=== PATIENT | female | born 1935 | race Caucasian/White ===

== ENCOUNTER → 2016-12-26 | Outpatient (REF) | payer MEDICARE ==
[2016-12-26 12:10] LABS: ALBUMIN 3.7 GM/DL (3.2-5.2); ALBUMIN/GLOBULIN RATIO 1.28 (1.00-1.93); ALKALINE PHOSPHATASE 75 U/L (45-117); ALT/SGPT 21 U/L (12-78); ANION GAP 7 MEQ/L (8-16); AST/SGOT 16 U/L (15-37); BILIRUBIN,TOTAL 0.7 MG/DL (0.2-1.0); BLOOD UREA NITROGEN 19 MG/DL (7-18); CALCIUM LEVEL 9.2 MG/DL (8.8-10.2); CARBON DIOXIDE LEVEL 31 MEQ/L (21-32); CHLORIDE LEVEL 103 MEQ/L (98-107); CHOLESTEROL LEVEL 188 MG/DL (<200); CREATININE FOR GFR 0.85 MG/DL (0.55-1.02); GLOMERULAR FILTRATION RATE > 60.0 (>32); GLUCOSE, FASTING 92 MG/DL (83-110); SODIUM LEVEL 141 MEQ/L (136-145); TOTAL PROTEIN 6.6 GM/DL (6.4-8.2); TRIGLYCERIDES LEVEL 94 MG/DL (<150)
== END ==
LOC: M SFHCPLAZ 07:52
PROVIDERS: ATTEND Nurse Practitioner Family
DX: I10 Essential (primary) hypertension (principal); E78.2 Mixed hyperlipidemia; E55.9 Vitamin D deficiency, unspecified

== ENCOUNTER → 2017-06-25 | Outpatient (REF) | payer OTHER ==
[2017-06-25 11:20] LABS: ALBUMIN 3.6 GM/DL (3.2-5.2); ALBUMIN/GLOBULIN RATIO 1.16 (1.00-1.93); ALKALINE PHOSPHATASE 78 U/L (45-117); ALT/SGPT 19 U/L (12-78); ANION GAP 9 MEQ/L (8-16); AST/SGOT 15 U/L (15-37); BILIRUBIN,TOTAL 0.7 MG/DL (0.2-1.0); BLOOD UREA NITROGEN 14 MG/DL (7-18); CALCIUM LEVEL 9.3 MG/DL (8.8-10.2); CARBON DIOXIDE LEVEL 30 MEQ/L (21-32); CHLORIDE LEVEL 100 MEQ/L (98-107); CREATININE FOR GFR 0.81 MG/DL (0.55-1.02); GLOMERULAR FILTRATION RATE > 60.0 (>32); GLUCOSE, FASTING 87 MG/DL (83-110); POTASSIUM SERUM 4.1 MEQ/L (3.5-5.1); SODIUM LEVEL 139 MEQ/L (136-145); TOTAL PROTEIN 6.7 GM/DL (6.4-8.2)
== END ==
LOC: M SFHCPLAZ 07:47
PROVIDERS: ATTEND Nurse Practitioner Family
DX: I10 Essential (primary) hypertension (principal)

== ENCOUNTER → 2018-01-30 | Outpatient (REF) | payer OTHER ==
[2018-01-30 13:53] LABS: ALBUMIN 3.6 GM/DL (3.2-5.2); ALBUMIN/GLOBULIN RATIO 1.09 (1.00-1.93); ALKALINE PHOSPHATASE 78 U/L (45-117); ALT/SGPT 19 U/L (12-78); ANION GAP 6 MEQ/L (8-16); AST/SGOT 15 U/L (7-37); BILIRUBIN,TOTAL 0.6 MG/DL (0.2-1.0); BLOOD UREA NITROGEN 24 MG/DL (7-18); CALCIUM LEVEL 9.7 MG/DL (8.8-10.2); CARBON DIOXIDE LEVEL 31 MEQ/L (21-32); CHLORIDE LEVEL 102 MEQ/L (98-107); CHOLESTEROL LEVEL 170 MG/DL (<200); CHOLESTEROL RISK RATIO 2.615 (<5); CREATININE FOR GFR 0.93 MG/DL (0.55-1.30); GLOMERULAR FILTRATION RATE > 60.0 (>32); GLUCOSE, FASTING 84 MG/DL (70-100); HDL CHOLESTEROL 65 MG/DL (>40); LDL CHOLESTEROL 88.4 MG/DL (<100); NON-HDL-C 105 MG/DL; POTASSIUM SERUM 4.1 MEQ/L (3.5-5.1); SODIUM LEVEL 139 MEQ/L (136-145); TOTAL PROTEIN 6.9 GM/DL (6.4-8.2); TRIGLYCERIDES LEVEL 83 MG/DL (<150)
== END ==
LOC: M SFHCPLAZ 09:52
DX: E78.2 Mixed hyperlipidemia (principal); I10 Essential (primary) hypertension
CPT/HCPCS: 80053

== ENCOUNTER → 2018-08-05 | Outpatient (REF) | payer OTHER ==
[2018-08-05 13:43] LABS: ALBUMIN 3.7 GM/DL (3.2-5.2); ALBUMIN/GLOBULIN RATIO 1.19 (1.00-1.93); ALKALINE PHOSPHATASE 78 U/L (45-117); ALT/SGPT 20 U/L (12-78); ANION GAP 6 MEQ/L (8-16); AST/SGOT 17 U/L (7-37); BILIRUBIN,TOTAL 0.6 MG/DL (0.2-1.0); BLOOD UREA NITROGEN 20 MG/DL (7-18); CALCIUM LEVEL 10.1 MG/DL (8.8-10.2); CARBON DIOXIDE LEVEL 30 MEQ/L (21-32); CHLORIDE LEVEL 101 MEQ/L (98-107); CREATININE FOR GFR 0.91 MG/DL (0.55-1.30); GLOMERULAR FILTRATION RATE > 60.0 (>32); GLUCOSE, FASTING 89 MG/DL (70-100); POTASSIUM SERUM 4.2 MEQ/L (3.5-5.1); SODIUM LEVEL 137 MEQ/L (136-145); TOTAL PROTEIN 6.8 GM/DL (6.4-8.2)
[2018-08-05 14:05] LABS: TOTAL 25(OH) VITAMIN D 48.6 NG/ML (30.0-100.0)
== END ==
LOC: M SFHCPLAZ 09:18
DX: E55.9 Vitamin D deficiency, unspecified (principal); I10 Essential (primary) hypertension; E66.9 Obesity, unspecified; Z68.31 Body mass index [BMI] 31.0-31.9, adult; Z23 Encounter for immunization
CPT/HCPCS: 80053

== ENCOUNTER → 2019-02-05 | Outpatient (REF) | payer MEDICARE ==
[2019-02-05 12:45] LABS: ALBUMIN 3.6 GM/DL (3.2-5.2); BILIRUBIN,TOTAL 0.6 MG/DL (0.2-1.0); CALCIUM LEVEL 9.3 MG/DL (8.8-10.2); CHOLESTEROL RISK RATIO 3.298 (<5); CREATININE FOR GFR 1.07 MG/DL (0.55-1.30); POTASSIUM SERUM 4.2 MEQ/L (3.5-5.1); TOTAL PROTEIN 7.1 GM/DL (6.4-8.2)
== END ==
LOC: M SFHCPLAZ 09:19
PROVIDERS: ATTEND Family Medicine
DX: I10 Essential (primary) hypertension (principal); E78.2 Mixed hyperlipidemia

== ENCOUNTER → 2019-08-16 | Outpatient (REF) | payer MEDICARE ==
[2019-08-16 18:07] LABS: ALBUMIN 3.7 GM/DL (3.2-5.2); BILIRUBIN,TOTAL 0.5 MG/DL (0.2-1.0); CALCIUM LEVEL 9.4 MG/DL (8.8-10.2); CHOLESTEROL RISK RATIO 3.764 (<5); CREATININE FOR GFR 1.27 MG/DL (0.55-1.30); GLOMERULAR FILTRATION RATE 42.7 (>32); POTASSIUM SERUM 4.7 MEQ/L (3.5-5.1); TOTAL PROTEIN 7.1 GM/DL (6.4-8.2)
[2019-08-16 18:13] LABS: TOTAL 25(OH) VITAMIN D 41.5 NG/ML (30.0-100.0)
== END ==
LOC: M SFHCPLAZ 15:54
PROVIDERS: ATTEND Nurse Practitioner Family
DX: I10 Essential (primary) hypertension (principal); E78.2 Mixed hyperlipidemia; E55.9 Vitamin D deficiency, unspecified

== ENCOUNTER → 2020-02-18 | Outpatient (REF) | payer MEDICARE ==
[2020-02-18 15:50] LABS: ALBUMIN 3.6 GM/DL (3.2-5.2); BILIRUBIN,TOTAL 0.6 MG/DL (0.2-1.0); CALCIUM LEVEL 9.6 MG/DL (8.8-10.2); CREATININE FOR GFR 1.33 MG/DL (0.55-1.30); GLOMERULAR FILTRATION RATE 40.4 (>32); POTASSIUM SERUM 4.5 MEQ/L (3.5-5.1); TOTAL PROTEIN 6.7 GM/DL (6.4-8.2)
== END ==
LOC: M SFHCPLAZ 10:20
PROVIDERS: ATTEND Physician Assistant
DX: N18.3 Chronic kidney disease, stage 3 (moderate) (principal)
CPT/HCPCS: 80053; G0463

== ENCOUNTER → 2020-08-21 | Outpatient (REF) | payer MEDICARE ==
[2020-08-21 15:03] LABS: ALBUMIN 3.7 GM/DL (3.2-5.2); BILIRUBIN,TOTAL 0.7 MG/DL (0.2-1.0); CALCIUM LEVEL 9.4 MG/DL (8.8-10.2); CHOLESTEROL RISK RATIO 3.258 (<5); CREATININE FOR GFR 1.15 MG/DL (0.55-1.30); GLOMERULAR FILTRATION RATE 47.7 (>32); POTASSIUM SERUM 4.5 MEQ/L (3.5-5.1); TOTAL 25(OH) VITAMIN D 50.9 NG/ML (30.0-100.0); TOTAL PROTEIN 6.7 GM/DL (6.4-8.2)
== END ==
LOC: M PLALAB 09:18
PROVIDERS: ATTEND Physician Assistant
DX: E78.2 Mixed hyperlipidemia (principal); I10 Essential (primary) hypertension; E55.9 Vitamin D deficiency, unspecified; Z79.899 Other long term (current) drug therapy

== ENCOUNTER → 2021-07-11 | Outpatient (CLI) | payer MEDICARE ==
[2021-07-11 13:01] LABS: BASO % 0.5 % (0.0-1.0); EOS # 0.4 10^3/uL (0.0-0.5); EOS % 5.6 % (0.0-3.0); HEMATOCRIT 29.7 % (36.0-47.0); HEMOGLOBIN 9.6 g/dl (12.0-15.5); LYMPH # 3.3 10^3/uL (1.5-5.0); LYMPH % 50.5 % (24.0-44.0); MEAN CORPUSCULAR HEMOGLOBIN 36.6 pg (27.0-33.0); MEAN CORPUSCULAR HGB CONC 32.3 g/dl (32.0-36.5); MEAN CORPUSCULAR VOLUME 113.4 fl (80.0-96.0); MONO # 0.4 10^3/uL (0.0-0.8); MONO % 5.3 % (2.0-8.0); NEUTROPHILS # 2.5 10^3/uL (1.5-8.5); NEUTROPHILS % 37.9 % (36.0-66.0); PLATELET COUNT, AUTOMATED 180 10^3/uL (150-450); RED BLOOD COUNT 2.62 10^6/uL (4.00-5.40); WHITE BLOOD COUNT 6.6 10^3/uL (4.0-10.0)
[2021-07-11 13:25] LABS: HEMOGLOBIN A1c 5.6 %
[2021-07-11 13:31] LABS: CHOLESTEROL LEVEL 176 MG/DL (<200); CPK CREATINE PHOSPHOKINASE 87 U/L (26-192); HDL CHOLESTEROL 50 MG/DL (>40); LDL CHOLESTEROL 87 MG/DL (<100); NON-HDL-C 126 MG/DL; TRIGLYCERIDES LEVEL 197 MG/DL (<150)
[2021-07-11 13:35] LABS: PTH INTACT 28.7 PG/ML (18.5-88.0); TOTAL 25(OH) VITAMIN D 44.8 NG/ML (30.0-100.0)
[2021-07-11 19:06] LABS: TOTAL PROTEIN 7.2 GM/DL (6.4-8.2)
[2021-07-12 11:15] LABS: ALBUMIN 4.14 GM/DL (3.29-5.55); ALBUMIN % 57.5 % (55.8-66.1); ALPHA-1-GLOBULIN % 5.5 % (2.9-4.9); ALPHA-2-GLOBULINS 0.86 GM/DL (0.42-0.99); BETA-1-GLOBULINS 0.45 GM/DL (0.28-0.60); BETA-1-GLOBULINS % 6.2 % (4.7-7.2); BETA-2-GLOBULINS 0.42 GM/DL (0.19-0.55); BETA-2-GLOBULINS % 5.8 % (3.2-6.5); GAMMA GLOBULINS 0.94 GM/DL (0.65-1.58)
== END ==
LOC: M PLALAB 10:36
PROVIDERS: ATTEND Physician Assistant Medical
DX: D64.9 Anemia, unspecified (principal); E55.9 Vitamin D deficiency, unspecified; E78.2 Mixed hyperlipidemia; I10 Essential (primary) hypertension; Z13.1 Encounter for screening for diabetes mellitus; Z79.899 Other long term (current) drug therapy

== ENCOUNTER → 2022-04-12 | Outpatient (CLI) | payer MEDICARE ==
[2022-04-12 14:03] LABS: BASO # 0.1 10^3/uL (0.0-0.2); BASO % 0.7 % (0.0-1.0); EOS # 0.1 10^3/uL (0.0-0.5); EOS % 1.7 % (0.0-3.0); HEMOGLOBIN 10.1 g/dl (12.0-15.5); LYMPH # 3.9 10^3/uL (1.5-5.0); LYMPH % 53.9 % (24.0-44.0); MEAN CORPUSCULAR HEMOGLOBIN 36.1 pg (27.0-33.0); MEAN CORPUSCULAR HGB CONC 32.6 g/dl (32.0-36.5); MEAN CORPUSCULAR VOLUME 110.7 fl (80.0-96.0); MONO # 0.3 10^3/uL (0.0-0.8); MONO % 4.5 % (2.0-8.0); NEUTROPHILS # 2.8 10^3/uL (1.5-8.5); NEUTROPHILS % 39.1 % (36.0-66.0); PLATELET COUNT, AUTOMATED 162 10^3/uL (150-450); WHITE BLOOD COUNT 7.3 10^3/uL (4.0-10.0)
[2022-04-12 17:31] LABS: ALBUMIN 3.9 GM/DL (3.2-5.2); BILIRUBIN,TOTAL 0.6 MG/DL (0.2-1.0); CALCIUM LEVEL 9.9 MG/DL (8.8-10.2); CHOLESTEROL RISK RATIO 2.981 (<5); CREATININE FOR GFR 1.42 MG/DL (0.55-1.30); GLOMERULAR FILTRATION RATE 37.3 (>32); POTASSIUM SERUM 4.5 MEQ/L (3.5-5.1); TOTAL PROTEIN 6.9 GM/DL (6.4-8.2)
[2022-04-12 18:00] LABS: HEMOGLOBIN A1c 5.5 %
== END ==
LOC: M PLALAB 10:14
PROVIDERS: ATTEND Physician Assistant Medical
DX: N18.31 Chronic kidney disease, stage 3a (principal); D64.9 Anemia, unspecified; E78.2 Mixed hyperlipidemia; Z13.1 Encounter for screening for diabetes mellitus; Z79.899 Other long term (current) drug therapy

== ENCOUNTER → 2023-02-03 | Outpatient (CLI) | payer MEDICARE, OTHER ==
[2023-02-03 13:23] LABS: BASO % 0.8 % (0.0-1.0); EOS # 0.1 10^3/uL (0.0-0.5); EOS % 1.1 % (0.0-3.0); HEMOGLOBIN 11.4 g/dl (12.0-15.5); LYMPH # 2.7 10^3/uL (1.5-5.0); LYMPH % 49.9 % (24.0-44.0); MEAN CORPUSCULAR HEMOGLOBIN 33.2 pg (27.0-33.0); MEAN CORPUSCULAR HGB CONC 32.6 g/dl (32.0-36.5); MONO # 0.4 10^3/uL (0.0-0.8); MONO % 7.7 % (2.0-8.0); NEUTROPHILS # 2.1 10^3/uL (1.5-8.5); NEUTROPHILS % 40.3 % (36.0-66.0); PLATELET COUNT, AUTOMATED 154 10^3/uL (150-450); RED BLOOD COUNT 3.43 10^6/uL (4.00-5.40); WHITE BLOOD COUNT 5.3 10^3/uL (4.0-10.0)
[2023-02-03 13:33] LABS: TOTAL 25(OH) VITAMIN D 49.9 NG/ML (20.0-100.0)
[2023-02-03 13:37] LABS: ALBUMIN 3.7 G/DL (3.2-5.2); BILIRUBIN,TOTAL 0.5 MG/DL (0.3-1.2); CALCIUM LEVEL 9.5 MG/DL (8.3-10.6); CHOLESTEROL RISK RATIO 3.26 (<5); CREATININE FOR GFR 1.29 MG/DL (0.55-1.30); GLOMERULAR FILTRATION RATE 41.5 (>32); LDL CHOLESTEROL 82.4 MG/DL (<100); POTASSIUM SERUM 4.5 MMOL/L (3.5-5.1); PTH INTACT 39.2 PG/ML (18.5-88.0); TOTAL PROTEIN 6.5 G/DL (5.7-8.2)
== END ==
LOC: M PLALAB 11:19
PROVIDERS: ATTEND Physician Assistant Medical
DX: E78.2 Mixed hyperlipidemia (principal); I12.9 Hypertensive chronic kidney disease with stage 1 through stage 4 chronic kidney disease, or unspecified chronic kidney disease; N18.31 Chronic kidney disease, stage 3a; E55.9 Vitamin D deficiency, unspecified

== ENCOUNTER → 2023-02-03 | Outpatient (REF) | payer MEDICARE | LOC: M SFHCPLAZ 10:59 | PROVIDERS: ATTEND Physician Assistant Medical | DX: E78.2 Mixed hyperlipidemia (principal); E55.9 Vitamin D deficiency, unspecified; I12.9 Hypertensive chronic kidney disease with stage 1 through stage 4 chronic kidney disease, or unspecified chronic kidney disease ==

== ENCOUNTER 2023-11-14 09:58 | Inpatient (IN) | payer OTHER, MEDICAID ==
[~2023-11-14] VITALS: Ht 154.9 cm; Wt 60.1 kg
[2023-11-14] MEDS ORDERED: ISOVUE-370 76% 100ML VIAL As Ordered ONE (10:38)
[2023-11-14] MEDS ORDERED: LISI10TA22 PO (11:04)
[2023-11-14] MEDS ORDERED: HYDR12CA PO (11:04)
[2023-11-14] MEDS ORDERED: BISO1TAB18 PO (11:04)
[2023-11-14] MEDS ORDERED: ATOR1TAB21 PO (11:04)
[2023-11-14 11:23] LABS: BASO # 0.1 10^3/uL (0.0-0.2); BASO % 0.9 % (0.0-1.0); EOS % 0.3 % (0.0-3.0); HEMATOCRIT 36.5 % (36.0-47.0); HEMOGLOBIN 12.1 g/dl (12.0-15.5); LYMPH # 0.6 10^3/uL (1.5-5.0); LYMPH % 10.4 % (24.0-44.0); MEAN CORPUSCULAR HEMOGLOBIN 32.4 pg (27.0-33.0); MEAN CORPUSCULAR HGB CONC 33.2 g/dl (32.0-36.5); MEAN CORPUSCULAR VOLUME 97.6 fl (80.0-96.0); MONO # 0.3 10^3/uL (0.0-0.8); MONO % 5.8 % (2.0-8.0); NEUTROPHILS # 4.8 10^3/uL (1.5-8.5); NEUTROPHILS % 82.4 % (36.0-66.0); PLATELET COUNT, AUTOMATED 156 10^3/uL (150-450); RED BLOOD COUNT 3.74 10^6/uL (4.00-5.40); WHITE BLOOD COUNT 5.8 10^3/uL (4.0-10.0)
[2023-11-14 11:39] LABS: INR 1.01; PARTIAL THROMBOPLASTIN TIME 24.1 SECONDS (24.8-34.2)
[2023-11-14 11:52] LABS: CALCIUM LEVEL 9.5 MG/DL (8.3-10.6); CREATININE FOR GFR 1.34 MG/DL (0.55-1.30); GLOMERULAR FILTRATION RATE 39.6 (>32); POTASSIUM SERUM 4.2 MMOL/L (3.5-5.1)
[2023-11-14 12:13] LABS: RSV AMPLIFICATION NEGATIVE (NEGATIVE)
[2023-11-14] MEDS ORDERED: ACETAMINOPHEN TAB 650MG DOSE (2X325MG) PO PRN (12:25)
[2023-11-14] MEDS ORDERED: OYST1TAB PO (13:25)
[2023-11-14] MEDS ORDERED: HOME MED LIST COMPLETE! XX SCH (13:45)
[2023-11-14 14:26] LABS: INR 1.06; PARTIAL THROMBOPLASTIN TIME 22.8 SECONDS (24.8-34.2); PROTHROMBIN TIME 13.5 SECONDS (12.5-14.5)
[2023-11-14 14:38] LABS: CHOLESTEROL RISK RATIO 3.13 (<5); HDL CHOLESTEROL 51.1 MG/DL (>40); LDL CHOLESTEROL 93.5 MG/DL (<100); NON-HDL-C 108.9 MG/DL
[2023-11-14 14:39] LABS: ALBUMIN 3.5 G/DL (3.2-5.2); BILIRUBIN,DIRECT 0.4 MG/DL (<0.4); TOTAL PROTEIN 6.2 G/DL (5.7-8.2)
[2023-11-14 14:49] LABS: HEMOGLOBIN A1c 5.6 % (4.0-6.0)
[2023-11-14 16:06] VITALS: BP 162/68; TEMP 98.3; O2SAT 98
[2023-11-14] MEDS: ATORVASTATIN 20 MG TAB PO SCH (16:52)
[2023-11-14] MEDS: ASPIRIN 325 MG TAB PO ONE (16:52)
[2023-11-14] MEDS: MOM 30ML SUSPENSION UDC PO PRN (16:52)
[2023-11-14] MEDS: APIXABAN 5 MG TAB (ELIQUIS) PO ONE (16:52)
[2023-11-14 18:45] VITALS: BP 137/63; TEMP 98.3; O2SAT 98
[2023-11-14 20:00] VITALS: BP 145/63; TEMP 97.7; O2SAT 90
[2023-11-14] MEDS: DOCUSATE SODIUM 100MG CAPSULE PO SCH (20:25)
[2023-11-14 22:00] VITALS: BP 145/63; TEMP 97.7; O2SAT 96
[2023-11-15] VITALS (7 sets, daily range): BP systolic 120–166; BP diastolic 57–74; TEMP 95.3–97.9; O2SAT 95–99
[2023-11-15 06:25] LABS: HEMATOCRIT 35.1 % (36.0-47.0); HEMOGLOBIN 11.6 g/dl (12.0-15.5); MEAN CORPUSCULAR HEMOGLOBIN 31.9 pg (27.0-33.0); MEAN CORPUSCULAR VOLUME 96.4 fl (80.0-96.0); PLATELET COUNT, AUTOMATED 159 10^3/uL (150-450); RED BLOOD COUNT 3.64 10^6/uL (4.00-5.40); WHITE BLOOD COUNT 6.7 10^3/uL (4.0-10.0)
[2023-11-15 06:55] LABS: CALCIUM LEVEL 9.1 MG/DL (8.3-10.6); CREATININE FOR GFR 1.23 MG/DL (0.55-1.30); GLOMERULAR FILTRATION RATE 43.8 (>32); POTASSIUM SERUM 3.8 MMOL/L (3.5-5.1)
[2023-11-15] MEDS: APIXABAN 5 MG TAB (ELIQUIS) PO SCH (08:22)
[2023-11-15] MEDS ORDERED: RIVAROXABAN 10MG TAB (XARELTO) PO SCH (09:00)
[2023-11-16 06:00] VITALS: BP 168/72; TEMP 97.3; O2SAT 95
[2023-11-16 12:27] LABS: HEMATOCRIT 34.4 % (36.0-47.0); HEMOGLOBIN 11.4 g/dl (12.0-15.5); MEAN CORPUSCULAR HEMOGLOBIN 32.4 pg (27.0-33.0); MEAN CORPUSCULAR HGB CONC 33.1 g/dl (32.0-36.5); MEAN CORPUSCULAR VOLUME 97.7 fl (80.0-96.0); PLATELET COUNT, AUTOMATED 156 10^3/uL (150-450); RED BLOOD COUNT 3.52 10^6/uL (4.00-5.40); WHITE BLOOD COUNT 7.4 10^3/uL (4.0-10.0)
[2023-11-16 12:54] LABS: CALCIUM LEVEL 8.6 MG/DL (8.3-10.6); CREATININE FOR GFR 1.09 MG/DL (0.55-1.30); GLOMERULAR FILTRATION RATE 50.3 (>32)
[2023-11-16 14:00] VITALS: BP 140/64; TEMP 97.5; O2SAT 98
[2023-11-16 18:00] VITALS: BP 132/60; TEMP 97.7; O2SAT 96
[2023-11-16 20:36] VITALS: BP 125/59; TEMP 97.9; O2SAT 95
[2023-11-17 00:19] VITALS: BP_SYST 140; BP_SYST 146; BP_DIAS 60; BP_DIAS 64; TEMP 98.1; O2SAT 94
[2023-11-17 04:15] VITALS: BP 150/68; TEMP 98.1; O2SAT 95
[2023-11-17 15:00] VITALS: BP 148/64; TEMP 97.5; O2SAT 95
[2023-11-17] MEDS: CEFDINIR 300 MG CAP (OMNICEF) PO SCH (15:53)
[2023-11-17 20:07] VITALS: BP 126/48; TEMP 98.1; O2SAT 97
[2023-11-18 05:45] VITALS: BP 151/70; TEMP 97.1; O2SAT 95
[2023-11-18 08:08] LABS: HEMATOCRIT 33.5 % (36.0-47.0); HEMOGLOBIN 11.2 g/dl (12.0-15.5); MEAN CORPUSCULAR HEMOGLOBIN 32.4 pg (27.0-33.0); MEAN CORPUSCULAR HGB CONC 33.4 g/dl (32.0-36.5); MEAN CORPUSCULAR VOLUME 96.8 fl (80.0-96.0); PLATELET COUNT, AUTOMATED 153 10^3/uL (150-450); RED BLOOD COUNT 3.46 10^6/uL (4.00-5.40); WHITE BLOOD COUNT 8.8 10^3/uL (4.0-10.0)
[2023-11-18 08:31] LABS: CALCIUM LEVEL 8.5 MG/DL (8.3-10.6); CREATININE FOR GFR 1.2 MG/DL (0.55-1.30); POTASSIUM SERUM 4.2 MMOL/L (3.5-5.1)
[2023-11-18 08:43] VITALS: BP 96/56; O2SAT 95
[2023-11-18 09:00] VITALS: BP 96/56
[2023-11-18] MEDS: LR 1,000 ML IV ONE (09:45)
[2023-11-18 09:50] VITALS: BP 104/56
[2023-11-18] MEDS ORDERED: METO1TAB87 PO (10:19)
[2023-11-18] MEDS ORDERED: ELIQ5TAB PO (10:19)
[2023-11-18] MEDS ORDERED: ATOR40TA75 PO (10:19)
[2023-11-18] MEDS ORDERED: CEFD300CAP PO (10:19)
[2023-11-18 14:10] VITALS: BP 114/58; TEMP 97.5; O2SAT 97
[2023-11-21] MEDS ORDERED: APIXABAN 5 MG TAB (ELIQUIS) PO SCH (09:00)
== END 2023-11-18 15:35 | DRG 65 ==
LOC: EDBD 09:58 → M ED 09:58 → M ED INP 12:21 → M MSPAV 16:07
PROVIDERS: ADMIT Student in an Organized Health Care Education/Training Program; ATTEND Student in an Organized Health Care Education/Training Program
DX: I63.511 Cerebral infarction due to unspecified occlusion or stenosis of right middle cerebral artery (principal); I82.402 Acute embolism and thrombosis of unspecified deep veins of left lower extremity; I69.354 Hemiplegia and hemiparesis following cerebral infarction affecting left non-dominant side; E78.5 Hyperlipidemia, unspecified; N18.30 Chronic kidney disease, stage 3 unspecified; I12.9 Hypertensive chronic kidney disease with stage 1 through stage 4 chronic kidney disease, or unspecified chronic kidney disease; I48.0 Paroxysmal atrial fibrillation; Z79.899 Other long term (current) drug therapy

== ENCOUNTER 2023-11-18 09:28 | Inpatient (IN) | payer OTHER, MEDICAID ==
[~2023-11-18] VITALS: Ht 149.9 cm; Wt 61.7 kg
[~2023-11-18 09:28] MED LIST: ATOR1TAB21 PO; BISO1TAB18 PO; HYDR12CA PO; LISI10TA22 PO; OYST1TAB PO
[2023-11-18] MEDS ORDERED: ELIQ5TAB PO (10:19)
[2023-11-18] MEDS ORDERED: ATOR40TA75 PO (10:19)
[2023-11-18] MEDS ORDERED: METO1TAB87 PO (10:19)
[2023-11-18] MEDS ORDERED: CEFD300CAP PO (10:19)
[2023-11-18] MEDS ORDERED: ONDANSETRON 4MG TAB PO PRN (15:00)
[2023-11-18 15:37] VITALS: BP 128/72; TEMP 98; O2SAT 97
[2023-11-18 20:00] VITALS: BP 120/70; TEMP 97.1; O2SAT 98
[2023-11-18] MEDS: METOPROLOL TART 25 MG TABLET PO SCH (21:22)
[2023-11-18] MEDS: APIXABAN 5 MG TAB (ELIQUIS) PO SCH (21:22)
[2023-11-19 06:00] VITALS: BP 143/66; TEMP 97.5; O2SAT 97
[2023-11-19 06:16] LABS: HEMATOCRIT 34.5 % (36.0-47.0); HEMOGLOBIN 11.5 g/dl (12.0-15.5); MEAN CORPUSCULAR HGB CONC 33.3 g/dl (32.0-36.5); MEAN CORPUSCULAR VOLUME 96.1 fl (80.0-96.0); PLATELET COUNT, AUTOMATED 179 10^3/uL (150-450); RED BLOOD COUNT 3.59 10^6/uL (4.00-5.40); WHITE BLOOD COUNT 8.3 10^3/uL (4.0-10.0)
[2023-11-19 06:46] LABS: CALCIUM LEVEL 8.4 MG/DL (8.3-10.6); CREATININE FOR GFR 1.11 MG/DL (0.55-1.30); GLOMERULAR FILTRATION RATE 49.3 (>32); POTASSIUM SERUM 4.4 MMOL/L (3.5-5.1)
[2023-11-19] MEDS: ATORVASTATIN 20 MG TAB PO SCH (07:27)
[2023-11-19] MEDS: OYSTER SHELL CALCIUM 500 MG TAB PO SCH (07:28)
[2023-11-19] MEDS: CEFDINIR 300 MG CAP (OMNICEF) PO SCH (07:28)
[2023-11-19] MEDS: amLODIPine 5 MG TAB PO SCH (07:56)
[2023-11-19 14:00] VITALS: BP 113/56; TEMP 97.6; O2SAT 100
[2023-11-19 19:35] VITALS: BP 118/61; TEMP 97.8; O2SAT 98
[2023-11-20 05:57] VITALS: BP 139/76; TEMP 97.6; O2SAT 96
[2023-11-20 14:00] VITALS: BP 115/58; TEMP 97.6; O2SAT 97
[2023-11-20 20:00] VITALS: BP 116/58; TEMP 97.8; O2SAT 98
[2023-11-21 06:00] VITALS: BP 136/62; TEMP 97.3; O2SAT 99
[2023-11-21 14:00] VITALS: BP 131/61; TEMP 98; O2SAT 100
[2023-11-21 20:00] VITALS: BP 124/56; TEMP 98.2; O2SAT 98
[2023-11-21] MEDS: APIXABAN 5 MG TAB (ELIQUIS) PO SCH (20:57)
[2023-11-22 06:00] VITALS: BP 123/60; TEMP 97.1; O2SAT 97
[2023-11-22 14:00] VITALS: BP 130/63; TEMP 98.1; O2SAT 97
[2023-11-22 20:00] VITALS: BP 114/57; TEMP 97.6; O2SAT 96
[2023-11-23 06:00] VITALS: BP 159/67; TEMP 98.2; O2SAT 98
[2023-11-23 14:00] VITALS: BP 123/65; TEMP 97.8; O2SAT 96
[2023-11-23 20:00] VITALS: BP 127/61; TEMP 97.2; O2SAT 99
[2023-11-24 06:00] VITALS: BP 138/64; TEMP 98.3; O2SAT 98
[2023-11-24 14:00] VITALS: BP 139/63; TEMP 97.4; O2SAT 98
[2023-11-24 20:00] VITALS: BP 127/60; TEMP 98.1; O2SAT 96
[2023-11-25 06:00] VITALS: BP 111/92; TEMP 97.7; O2SAT 98
[2023-11-25 13:40] VITALS: BP 120/60; TEMP 97.7; O2SAT 97
[2023-11-25 20:00] VITALS: BP 124/58; TEMP 97.5; O2SAT 97
[2023-11-26 06:00] VITALS: BP 142/67; TEMP 98.2; O2SAT 97
[2023-11-26 14:00] VITALS: BP 123/67; TEMP 98.2; O2SAT 99
[2023-11-26 20:00] VITALS: BP 115/56; TEMP 98.3; O2SAT 97
[2023-11-27 06:00] VITALS: BP 128/59; TEMP 97.9; O2SAT 95
[2023-11-27 06:53] LABS: HEMATOCRIT 31.7 % (36.0-47.0); HEMOGLOBIN 10.2 g/dl (12.0-15.5); MEAN CORPUSCULAR HEMOGLOBIN 31.3 pg (27.0-33.0); MEAN CORPUSCULAR HGB CONC 32.2 g/dl (32.0-36.5); MEAN CORPUSCULAR VOLUME 97.2 fl (80.0-96.0); PLATELET COUNT, AUTOMATED 199 10^3/uL (150-450); RED BLOOD COUNT 3.26 10^6/uL (4.00-5.40); WHITE BLOOD COUNT 5.4 10^3/uL (4.0-10.0)
[2023-11-27 07:24] LABS: CALCIUM LEVEL 8.3 MG/DL (8.3-10.6); CREATININE FOR GFR 1.21 MG/DL (0.55-1.30); GLOMERULAR FILTRATION RATE 44.6 (>32); POTASSIUM SERUM 4.8 MMOL/L (3.5-5.1)
[2023-11-27 14:00] VITALS: BP 123/58; TEMP 97.9; O2SAT 97
[2023-11-27 20:00] VITALS: BP 125/60; TEMP 98.1; O2SAT 98
[2023-11-28 06:00] VITALS: BP 122/61; TEMP 98.2; O2SAT 97
[2023-11-28 06:48] LABS: HEMATOCRIT 29.4 % (36.0-47.0); HEMOGLOBIN 9.5 g/dl (12.0-15.5); MEAN CORPUSCULAR HEMOGLOBIN 31.5 pg (27.0-33.0); MEAN CORPUSCULAR HGB CONC 32.3 g/dl (32.0-36.5); MEAN CORPUSCULAR VOLUME 97.4 fl (80.0-96.0); PLATELET COUNT, AUTOMATED 200 10^3/uL (150-450); RED BLOOD COUNT 3.02 10^6/uL (4.00-5.40); WHITE BLOOD COUNT 5.8 10^3/uL (4.0-10.0)
[2023-11-28] MEDS: IRON POLYSAC (NIFEREX) 150 MG CAP PO SCH (10:14)
[2023-11-28] MEDS: OMEPRAZOLE 20MG CAP PO SCH (10:16)
[2023-11-28 14:00] VITALS: BP 124/58; TEMP 97; O2SAT 99
[2023-11-28 20:00] VITALS: BP 119/59; TEMP 98.2; O2SAT 97
[2023-11-29 06:00] VITALS: BP 123/58; TEMP 97.8; O2SAT 96
[2023-11-29 06:57] LABS: HEMATOCRIT 29.6 % (36.0-47.0); HEMOGLOBIN 9.7 g/dl (12.0-15.5); MEAN CORPUSCULAR HEMOGLOBIN 32.1 pg (27.0-33.0); MEAN CORPUSCULAR HGB CONC 32.8 g/dl (32.0-36.5); PLATELET COUNT, AUTOMATED 183 10^3/uL (150-450); RED BLOOD COUNT 3.02 10^6/uL (4.00-5.40); WHITE BLOOD COUNT 5.4 10^3/uL (4.0-10.0)
[2023-11-29 14:14] VITALS: BP 118/56; TEMP 98; O2SAT 98
[2023-11-29 20:00] VITALS: BP 121/60; TEMP 97.5; O2SAT 97
[2023-11-30 06:00] VITALS: BP 129/60; TEMP 97.6; O2SAT 96
[2023-11-30 13:38] VITALS: BP 115/54; TEMP 97.9; O2SAT 95
[2023-11-30 20:10] VITALS: BP 129/62; TEMP 98.2; O2SAT 94
[2023-12-01 06:00] VITALS: BP 124/59; TEMP 98.1; O2SAT 97
[2023-12-01 14:00] VITALS: BP 125/60; TEMP 97.5; O2SAT 99
[2023-12-01 20:51] VITALS: BP 133/61; TEMP 97.7; O2SAT 98
[2023-12-02 06:56] VITALS: BP 132/70; TEMP 97.2; O2SAT 95
[2023-12-02 13:32] LABS: CALCIUM LEVEL 8.6 MG/DL (8.3-10.6); CREATININE FOR GFR 1.12 MG/DL (0.55-1.30); GLOMERULAR FILTRATION RATE 48.8 (>32); POTASSIUM SERUM 4.7 MMOL/L (3.5-5.1)
[2023-12-02 13:42] LABS: HEMOGLOBIN 11.3 g/dl (12.0-15.5); MEAN CORPUSCULAR HEMOGLOBIN 32.1 pg (27.0-33.0); MEAN CORPUSCULAR HGB CONC 32.3 g/dl (32.0-36.5); MEAN CORPUSCULAR VOLUME 99.4 fl (80.0-96.0); PLATELET COUNT, AUTOMATED 239 10^3/uL (150-450); RED BLOOD COUNT 3.52 10^6/uL (4.00-5.40); WHITE BLOOD COUNT 7.1 10^3/uL (4.0-10.0)
[2023-12-02 14:00] VITALS: BP 136/74; TEMP 97.4; O2SAT 96
[2023-12-02] MEDS: DONEPEZIL 5 MG TAB PO SCH (15:14)
[2023-12-02 20:00] VITALS: BP_SYST 119; BP_SYST 140; BP_DIAS 74; TEMP 98.5; O2SAT 98
[2023-12-03 06:00] VITALS: BP 135/62; TEMP 98.2; O2SAT 98
[2023-12-03 07:24] LABS: PERCENT SATURATION 14.9 % (13.2-45.0)
[2023-12-03 07:27] LABS: FERRITIN 122.8 NG/ML (7.3-270.7)
[2023-12-03 07:54] VITALS: BP 121/58; O2SAT 99
[2023-12-03 14:00] VITALS: BP 132/59; TEMP 98; O2SAT 100
[2023-12-03 20:00] VITALS: BP 126/64; TEMP 98.2; O2SAT 97
[2023-12-04 06:00] VITALS: BP 136/63; TEMP 98.1; O2SAT 97
[2023-12-04 08:41] VITALS: BP 113/57
[2023-12-04] MEDS ORDERED: ARIC1TAB PO (10:29)
[2023-12-04] MEDS ORDERED: METO1TAB87 PO (10:29)
[2023-12-04] MEDS ORDERED: ELIQ5TAB PO (10:29)
[2023-12-04] MEDS ORDERED: NIFE15CA PO (10:29)
[2023-12-08 12:30] LABS: B12 DEFIECIENCY 931 PG/ML (232-1245)
== END 2023-12-04 15:20 | DRG 57 ==
LOC: M PM&R 15:15
PROVIDERS: ADMIT Student in an Organized Health Care Education/Training Program; ATTEND Student in an Organized Health Care Education/Training Program
DX: I69.352 Hemiplegia and hemiparesis following cerebral infarction affecting left dominant side (principal); N39.0 Urinary tract infection, site not specified; I82.512 Chronic embolism and thrombosis of left femoral vein; I82.812 Embolism and thrombosis of superficial veins of left lower extremity; I48.0 Paroxysmal atrial fibrillation; N18.30 Chronic kidney disease, stage 3 unspecified; I12.9 Hypertensive chronic kidney disease with stage 1 through stage 4 chronic kidney disease, or unspecified chronic kidney disease; F09 Unspecified mental disorder due to known physiological condition; E78.5 Hyperlipidemia, unspecified; M19.90 Unspecified osteoarthritis, unspecified site; Z98.41 Cataract extraction status, right eye; Z98.42 Cataract extraction status, left eye; R26.89 Other abnormalities of gait and mobility; R26.2 Difficulty in walking, not elsewhere classified; M21.372 Foot drop, left foot; D50.9 Iron deficiency anemia, unspecified; R60.0 Localized edema; E55.9 Vitamin D deficiency, unspecified; Z79.899 Other long term (current) drug therapy; F03.90 Unspecified dementia, unspecified severity, without behavioral disturbance, psychotic disturbance, mood disturbance, and anxiety